=== PATIENT | female | born 1985 | race Caucasian/White ===

== ENCOUNTER 2016-03-03 03:56 | Inpatient (IN) | payer OTHER ==
[2016-03-03] VITALS (10 sets, daily range): BP systolic 114–123; BP diastolic 71–81; PULSE 79–95; RESP 18–20; TEMP 98
[~2016-03-03 03:56] MED LIST: MECL-62 PO; PREN29TA PO; ZOFR4TAB3 SL
[2016-03-03] MEDS ORDERED: LACTATED RINGER'S 1000 ML INJ 1,000 ML IV PRN (04:31)
[2016-03-03] MEDS ORDERED: CITRIC ACID-SODIUM CITRATE LIQ 30 ML UDC PO SCH (04:45)
[2016-03-03] MEDS ORDERED: MINERAL OIL 10 ML VIAL TOPICAL PRN (04:45)
[2016-03-03] MEDS ORDERED: SODIUM CHLORID 0.9% 500 ML INJ 500 ML IV PRN (04:45)
[2016-03-03] MEDS ORDERED: LIDOCAINE HCL 1% 50 ML VIAL INFIL PRN (04:45)
[2016-03-03] MEDS ORDERED: OXYTOCIN 30 UNITS-500ML PREMIX 500 ML IV ONE (04:45)
[2016-03-03] MEDS ORDERED: LIDOCAINE HCL 1% 50 ML VIAL I-DERMAL PRN (04:45)
--- NOTE | 2016-03-03 04:47 | HHI.HP ---
HPI Chief Complaint I broke my water Date Seen: Mar 03, 2016 Time Seen: 04:30 Travel History International Travel<30 Days: No Contact w/Intl Traveler<30Days: No Known Affected Area: No History of Present Illness HPI 30-year-old at 37 weeks and 2 days of gestation, EDC 03/22/16, patient presents to labor and delivery complaining of sudden onset of leakage of fluids at midnight today. Patient stated that the fluid was clear. She denies cramping, contractions, vaginal bleeding. Patient reports presence of movement. GBS is unknown. care is with Dr. Sade Mcknight. course is unremarkable. Examination shows patient is grossly ruptured with positive amnisure test. She is martha irregularly and vaginal exam is 1 cm, 90%, -3. Para: 0 : 1 Miscarriage: 0 : 0 History Past Medical History Narrative Medical Denies Medical History: Denies Significant Hx Obstetric History Obstetric History Primigravida Past Surgical History Narrative Surgical Denies Surgical History: No Previous Surgery Family History Narrative Family History Maternal grandmother with diabetes and hypertension Social History Alcohol Use: No Tobacco Use: No Substance Abuse: No Allergies-Medications (Allergen,Severity, Reaction): Coded Allergies: No Known Allergies (Unverified , 12/22/15) Home Meds Active Scripts Meclizine 25 Mg Tab25 Mg PO TID PRN (VERTIGO) #20 TAB Ref 0 Prov:Toby Armas MD 12/22/15 Ondansetron Odt (Zofran Odt)4 Mg Tab4 Mg SL Q6HR PRN (Nausea/Vomiting) #10 TAB Ref 0 Prov:Toby Armas MD 12/22/15 Reported Medications Vit-Iron Carbonyl ( Plus Iron 29-1 mg)1 Tab Tab1 Tab PO DAILY #30 TAB Ref 0 12/22/15 Review of Systems Except as stated in HPI: all other systems reviewed are Neg Genitourinary: Other (medications fluids) Physical Exam Narrative GENERAL: Well-nourished, well-developed patient. SKIN: Warm and dry. HEAD: Normocephalic and atraumatic. EYES: No scleral icterus. No injection or drainage. ENT: No nasal drainage noted. Mucous membranes pink. Airway patent. NECK: Supple, trachea midline. No JVD. CARDIOVASCULAR: Regular rate and rhythm without murmurs, gallops, or rubs. RESPIRATORY: Breath sounds equal bilaterally. No accessory muscle use. BREASTS: Bilateral exam showed no masses , no retractions, no nipple discharge. ABDOMEN/GI: Abdomen soft, gravid,non-tender, bowel sounds present, no rebound, no guarding Gravid to 37 weeks size Fundal Height: 37 cm GENITOURINARY: External Genitalia: intact and normal in appearance BUS glands: Normal Cervix: 1 cm, 90%, -3, posterior, patient is grossly ruptured with pooling of fluid in the vaginal vault Dilatation: 1 cm Effacement: 90% Station: -3 Presentation: Cephalic Membranes: Grossly ruptured Uterine Contractions: Irregular FHT's: Category: one Baseline: 120s Reactive: Yes Variability: Moderate Decels: None EXTREMITIES: No cyanosis or edema. BACK: Nontender without obvious deformity. No CVA tenderness. NEUROLOGICAL: Awake and alert. Motor and sensory grossly within normal limits. Five out of 5 muscle strength in all muscle groups. Normal speech. Data Data Vital Signs Reviewed: Yes Orders Vital Signs (Adult) .ON ADMISSION (03/03/16 04:12) ^ Labor Status (03/03/16 04:12) Urinalysis - C+S If Indicated (03/03/16 04:12) ^ Non Stress Test (03/03/16 04:12) ^ Hydration (03/03/16 04:12) Admit To Inpatient (03/03/16 ) Vital Signs (Adult) .Per protocol (03/03/16 04:31) Activity Oob Ad Reshma (03/03/16 04:31) ^ Heart (03/03/16 04:31) ^ Amnioinfusion (03/03/16 04:31) Urinary Catheter Management .ONCE (03/03/16 04:31) Lactated Ringer's 1000 Ml Inj (Lr 1000 M (03/03/16 04:31) Lactated Ringer's 1000 Ml Inj (Lr 1000 M (03/03/16 04:31) Sodium Chlorid 0.9% 500 Ml Inj (Ns 500 M (03/03/16 04:45) Sodium Chlor 0.9% 1000 Ml Inj (Ns 1000 M (03/03/16 04:51) Lidocaine 1% Inj (50 Ml) (Xylocaine 1% I (03/03/16 04:45) Citric Acid-Sodium Citrate Liq (Bicitra (03/03/16 04:45) Fentanyl Inj (Fentanyl Inj) (03/03/16 04:45) Fentanyl Inj (Fentanyl Inj) (03/03/16 04:45) Complete Blood Count With Diff (03/03/16 04:31) Hold Clot (03/03/16 04:31) Abo/Rh Blood Type (03/03/16 04:31) Type And Screen (03/03/16 04:31) Resp Oxygen Non Rebreathe Mask (03/03/16 ) ^ Epidural / Intrathecal Infus (03/03/16 04:31) Oxytocin 30 Units-500ml Premix (Pitocin (03/03/16 04:45) Lidocaine 1% Inj (50 Ml) (Xylocaine 1% I (03/03/16 04:45) Light Mineral Oil (Muri-Lube Oil) (03/03/16 04:45) Inpatient Certification (03/03/16 ) Assessment/Plan Problem List: (1) 37 weeks gestation of (2) PROM with onset of labor within 24 hours of rupture Assessment and Plan Term at 37 weeks and 2 days of gestation with premature rupture of membranes in labor, reassuring heart status, GBS unknown. 1. Premature rupture of membranes in labor * Admit patient to labor and delivery * Keep patient nothing by mouth * Continuous heart monitoring * Patient may have IV pain medications or epidural for pain management * Monitor progress of labor * Anticipate vaginal delivery * Admission blood work * Pitocin augmentation if needed 2. GBS unknown * At this point there is not risk factors, start antibiotic prophylaxis if risk factors is noted Dr. Mccracken is notified Discharge Planning We will discharge patient to home in 2-3 days after delivery Valentin Sparrow MD Mar 03, 2016 04:47
[2016-03-03] MEDS ORDERED: SODIUM CHLOR 0.9% 1000 ML INJ 1,000 ML IV PRN (04:51)
[2016-03-03] MEDS: LACTATED RINGER'S 1000 ML INJ 1,000 ML IV SCH ×2 (05:00→09:46)
[2016-03-03] MEDS ORDERED: OXYTOCIN 30 UNITS-500ML PREMIX 500 ML IV SCH (05:00)
[2016-03-03 05:04] LABS: BACTERIA, URINE RARE /hpf; BLOOD, URINE MOD (NEG); COMMENT (UR) CULTURE INDICATED; CULTURE IF INDICATED CULTURE INDICATED; GLUCOSE,URINE NEG (NEG); KETONE, URINE NEG (NEG); MUCUS URINE FEW /lpf (OCC); NITRITE,URINE NEG (NEG); RENAL EPITHELIAL CELLS <1 /hpf; SQUAMOUS EPITHELIAL CELL URINE 8 /hpf (0-5); URINE COLOR YELLOW (YELLW/STRAW)
[2016-03-03 05:21] LABS: AUTOMATED NEUTROPHIL # 8.1 TH/MM3 (1.8-7.7); BASOPHIL % 0.2 % (0.0-2.0); EOSINOPHIL # 0.1 TH/MM3 (0-0.4); EOSINOPHIL % 0.6 % (0.0-4.0); HEMATOCRIT 33.6 % (35.0-46.0); HEMO FLAGS DIFF FINAL; LYMPHOCYTE # 1.6 TH/MM3 (1.0-4.8); MEAN CELL VOLUME 88.8 FL (80.0-100.0); MEAN CORPUSCULAR HEMOGLOBIN 30.6 PG (27.0-34.0); MEAN CORPUSCULAR HGB CONC 34.5 % (32.0-36.0); MONO % 4.7 % (0.0-8.0); NEUT % 78.5 % (16.0-70.0); PLATELET COUNT 239 TH/MM3 (150-450); RED BLOOD COUNT 3.79 MIL/MM3 (4.00-5.30); RED CELL DISTRIBUTION WIDTH 12.9 % (11.6-17.2); WHITE BLOOD COUNT 10.3 TH/MM3 (4.0-11.0)
[2016-03-03] MEDS ORDERED: ONDANSETRON HCL 4 MG/2 ML VIAL IV PUSH PRN (09:45)
[2016-03-03] MEDS ORDERED: fentaNYL 2MCG-BUPIV 0.125% INJ 100 ML ONE (12:59)
[2016-03-03] MEDS ORDERED: ePHEDrine/NS 50 MG/5 ML SYR ONE (13:00)
[2016-03-03] MEDS ORDERED: ACETAMINOPHEN 325 MG TAB PO PRN (14:45)
[2016-03-03] MEDS ORDERED: oxyCODONE/ACETAMINOPHEN 5 MG/325 MG TAB PO PRN (14:45)
[2016-03-03] MEDS ORDERED: oxyCODONE/ACETAMINOPHEN 5 MG/325 MG 2 TABS PO PRN (14:45)
[2016-03-03] MEDS ORDERED: WITCH HAZEL 50%/GLYCERIN 12.5% 40 PAD JAR TOP PRN (14:45)
[2016-03-03] MEDS ORDERED: ONDANSETRON ODT 4 MG TAB PO PRN (14:45)
[2016-03-03] MEDS ORDERED: ZOLPIDEM TARTRATE 5 MG TAB PO PRN (14:45)
[2016-03-03] MEDS ORDERED: BENZOCAINE 20% TOPICAL SPRAY 60 ML CAN TOP PRN (14:45)
[2016-03-03] MEDS ORDERED: ALUMINUM/MAGNESIUM/SIMETH 30 ML CUP PO PRN (14:45)
[2016-03-03] MEDS: IBUPROFEN 600 MG TAB PO PRN ×2 (14:52→22:20)
[2016-03-03] MEDS ORDERED: MEASLES, MUMPS, RUBELLA VACCINE 0.5 ML VIAL SQ ONE (16:00)
[2016-03-03] MEDS ORDERED: DIPHTH/TETANUS/ACEL PERTUSSIS (BOOSTER) 0.5 ML VIAL/PFS IM ONE (16:00)
[2016-03-04 08:00] VITALS: BP 99/69; PULSE 74; RESP 18; TEMP 98.2; O2SAT 98
--- NOTE | 2016-03-04 10:06 | HHI.OB ---
Subjective Post Day: 1 Remarks doing well Objective Vitals/I&O Vital Signs Date Time Temp Pulse Resp B/P Pulse Ox O2 Delivery O2 Flow Rate FiO2 03/04/16 08:00 98.2 74 18 99/69 98 03/03/16 15:45 83 114/71 03/03/16 15:44 18 03/03/16 15:30 20 03/03/16 14:30 18 Objective Remarks GENERAL: Well-nourished, well-developed patient. ABDOMEN/GI: Abdomen soft, non-tender. Fundus: Firm, non-tender at umbilicus. GENITOURINARY: Light to moderate bleeding. EXTREMITIES: No cyanosis or edema, non-tender, without signs of DVT. Medications and IVs Current Medications Medications (Trade) Dose Ordered Sig/Rebeka Route Start Time Stop Time Status Last Admin (Tylenol) 650 mg Q4H PRN PO 03/03/16 14:45 (Motrin) 600 mg Q6H PRN PO 03/03/16 14:45 03/03/16 22:20 (Percocet 5-325 Mg) 1 tab Q4H PRN PO 03/03/16 14:45 (Percocet 5-325 Mg) 2 tab Q4H PRN PO 03/03/16 14:45 (Americaine 20% Top Spr) 1 spray Q4H PRN TOP 03/03/16 14:45 (Tucks Pads) 1 applic Q6H PRN TOP 03/03/16 14:45 (Karin-Colace) 2 tab Q12H PRN PO 03/03/16 14:45 (Ambien) 5 mg HS PRN PO 03/03/16 14:45 (Mag-Al Plus Susp Liq) 15 ml Q8H PRN PO 03/03/16 14:45 (Zofran Odt) 4 mg Q6H PRN PO 03/03/16 14:45 Assessment/Plan Problem List: (1) 37 weeks gestation of (2) PROM with onset of labor within 24 hours of rupture Assessment and Plan Term at 37 weeks and 2 days of gestation with premature rupture of membranes in labor, reassuring heart status, GBS unknown. 1. Premature rupture of membranes in labor * Admit patient to labor and delivery * Keep patient nothing by mouth * Continuous heart monitoring * Patient may have IV pain medications or epidural for pain management * Monitor progress of labor * Anticipate vaginal delivery * Admission blood work * Pitocin augmentation if needed 2. GBS unknown * At this point there is not risk factors, start antibiotic prophylaxis if risk factors is noted Dr. Mccracken is notified Discharge Planning [place] home tomorrow Chapo Durbin MD Mar 04, 2016 10:06
--- NOTE | 2016-03-04 10:07 | HHI.DCPOC ---
Discharge Care Plan Diagnosis: (1) Spontaneous vaginal delivery Report Symptoms to Your Doctor -Temperate above 100.5 degrees -Redness, of incision or excessive or foul smelling drainage -Unusual pain or calf pain -Increased vaginal bleeding -Painful or difficulty urinating -Feelings of extreme sadness or anxiety after 2 weeks Goals to Promote Your Health * To prevent worsening of your condition and complications * To maintain your health at the optimal level Directions to Meet Your Goals Take your medications as prescribed Follow your dietary instruction Follow activity as directed Ensure plenty of rest for recovery Drink fluids for hydration Keep your appointments as scheduled Take your immunizations and boosters as scheduled If your symptoms worsen call your PCP, if no PCP go to Urgent Care Center or Emergency Room Smoking is Dangerous to Your Health. Avoid second hand smoke Call the 24-hour crisis hotline for domestic abuse at Chapo Durbin MD Mar 04, 2016 10:07
[2016-03-04] MEDS: DOCUSATE SODIUM 50 MG/SENNA 8.6 MG TAB PO PRN (10:24)
[2016-03-04] MEDS: IBUPROFEN 600 MG TAB PO PRN ×2 (10:25→17:44)
[2016-03-05] MEDS: IBUPROFEN 600 MG TAB PO PRN ×2 (01:27→11:56)
--- NOTE | 2016-03-05 09:33 | HHI.OB ---
Subjective Post Day: 2 Remarks doing well dc home Objective Objective Remarks GENERAL: Well-nourished, well-developed patient. ABDOMEN/GI: Abdomen soft, non-tender. Fundus: Firm, non-tender at umbilicus. GENITOURINARY: Light to moderate bleeding. EXTREMITIES: No cyanosis or edema, non-tender, without signs of DVT. Medications and IVs Current Medications Medications (Trade) Dose Ordered Sig/Rebeka Route Start Time Stop Time Status Last Admin (Tylenol) 650 mg Q4H PRN PO 03/03/16 14:45 (Motrin) 600 mg Q6H PRN PO 03/03/16 14:45 03/05/16 01:27 (Percocet 5-325 Mg) 1 tab Q4H PRN PO 03/03/16 14:45 (Percocet 5-325 Mg) 2 tab Q4H PRN PO 03/03/16 14:45 (Americaine 20% Top Spr) 1 spray Q4H PRN TOP 03/03/16 14:45 (Tucks Pads) 1 applic Q6H PRN TOP 03/03/16 14:45 (Karin-Colace) 2 tab Q12H PRN PO 03/03/16 14:45 03/04/16 10:24 (Ambien) 5 mg HS PRN PO 03/03/16 14:45 (Mag-Al Plus Susp Liq) 15 ml Q8H PRN PO 03/03/16 14:45 (Zofran Odt) 4 mg Q6H PRN PO 03/03/16 14:45 Assessment/Plan Problem List: (1) 37 weeks gestation of (2) PROM with onset of labor within 24 hours of rupture Assessment and Plan Term at 37 weeks and 2 days of gestation with premature rupture of membranes in labor, reassuring heart status, GBS unknown. 1. Premature rupture of membranes in labor * Admit patient to labor and delivery * Keep patient nothing by mouth * Continuous heart monitoring * Patient may have IV pain medications or epidural for pain management * Monitor progress of labor * Anticipate vaginal delivery * Admission blood work * Pitocin augmentation if needed 2. GBS unknown * At this point there is not risk factors, start antibiotic prophylaxis if risk factors is noted Dr. Mccracken is notified Discharge Planning DC home today. Circ done Chapo Durbni MD Mar 05, 2016 09:33
[2016-03-05] MEDS ORDERED: OXYC1TAB63 PO (09:34)
--- NOTE | 2016-03-05 09:36 | HHI.DS ---
Admission Date Mar 03, 2016 at 04:34 Discharge Date: Mar 05, 2016 Admitting Diagnosis Diagnosis: (1) Spontaneous vaginal delivery Diagnosis: Principal Vaginal Delivery: Normal, Spontaneous Infant: Male, Single Brief History 30-year-old at 37 weeks and 2 days of gestation, EDC 03/22/16, patient presents to labor and delivery complaining of sudden onset of leakage of fluids at midnight today. Patient stated that the fluid was clear. She denies cramping, contractions, vaginal bleeding. Patient reports presence of movement. GBS is unknown. care is with Dr. Sade Zimmerman. course is unremarkable. Examination shows patient is grossly ruptured with positive amnisure test. She is martha irregularly and vaginal exam is 1 cm, 90%, -3. Hospital Course doing well no complaints Pt Condition on Discharge: Good Discharge Disposition: Discharge Home Discharge Instructions Diet Instructions: As Tolerated, No Restrictions Activities You Can Perform: Pelvic Rest Activities to Avoid: Driving for 24 hrs Follow up Referrals: [facility] - 2 Weeks @ [facility] with Sade Zimmerman MD New Medications: Oxycodone-Acetaminophen (Oxycodone-Acetaminophen) 5-325 mg Tab 1 TAB PO Q4H PRN PAIN SCALE 3 TO 5 #20 TAB Continued Medications: Meclizine (Meclizine) 25 Mg Tab 25 MG PO TID PRN VERTIGO #20 Ref 0 TAB Ondansetron Odt (Zofran Odt) 4 Mg Tab 4 MG SL Q6HR PRN Nausea/Vomiting #10 Ref 0 TAB Vit-Iron Carbonyl ( Plus Iron 29-1 mg) 1 Tab Tab 1 TAB PO DAILY Nutritional Supplement #30 Ref 0 TAB Chapo Durbin MD Mar 05, 2016 09:36
[2016-03-05] MEDS: DOCUSATE SODIUM 50 MG/SENNA 8.6 MG TAB PO PRN (11:55)
== END 2016-03-05 13:56 | disposition home or self-care (01) | DRG 775 ==
LOC: HOBED 03:56 → H2EB 04:34 → H1EA 16:47
PROVIDERS: ADMIT Obstetrics & Gynecology; ATTEND Obstetrics & Gynecology
PROC: 10E0XZZ Delivery of Products of Conception, External Approach (ICD-10-PCS; principal; 2016-03-03)
PROC: 0W8NXZZ Division of Female Perineum, External Approach (ICD-10-PCS; 2016-03-03)
PROC: 0KQM0ZZ Repair Perineum Muscle, Open Approach (ICD-10-PCS; 2016-03-03)
DX: O42.92 Full-term premature rupture of membranes, unspecified as to length of time between rupture and onset of labor (principal); O70.1 Second degree perineal laceration during delivery; Z3A.37 37 weeks gestation of pregnancy; Z37.0 Single live birth
CPT/HCPCS: 81001; 84112; 85025; 86900; 86901; 87086; 90715; 99285; J2405; J2590; J3010; J7120